=== PATIENT | female | born 1985 | race Caucasian/White ===

== ENCOUNTER 2022-12-25 09:16 | Outpatient (CLI) | payer MEDICAID ==
[2022-12-25 12:34] LABS: BASOPHILS # (AUTO) 0.1 10^3/uL (0.0-0.1); EOSINOPHILS # (AUTO) 0.3 10^3/uL (0.0-0.7); EOSINOPHILS % (AUTO) 4.7 %; HCT - HEMATOCRIT 40.8 % (37.0-47.0); HGB - HEMOGLOBIN 14.1 g/dL (12.0-16.0); LYMPHOCYTES # (AUTO) 2.1 10^3/uL (1.5-3.5); LYMPHOCYTES % (AUTO) 35.6 %; MEAN CORPUSCULAR HEMOGLOBIN 31.3 pg (27.0-31.0); MEAN CORPUSCULAR HGB CONC 34.6 g/dL (32.0-36.0); MEAN CORPUSCULAR VOLUME 90.5 fL (81.0-99.0); MEAN PLATELET VOLUME 11.2 fL (7.9-10.8); MONOCYTES # (AUTO) 0.6 10^3/uL (0.0-1.0); MONOCYTES % (AUTO) 10.6 %; NEUTROPHILS # (AUTO) 2.8 10^3/uL (1.5-6.6); NEUTROPHILS % (AUTO) 47.8 %; PLT - PLATELET COUNT 235 10^3/uL (130-450); RED BLOOD COUNT 4.51 10^6/uL (4.20-5.40); RED CELL DISTRIBUTION WIDTH 12.3 % (12.0-15.0); WHITE BLOOD COUNT 5.8 x10^3/uL (4.8-10.8)
[2022-12-25 12:52] LABS: ALBUMIN 4.5 g/dL (3.2-5.5); ALBUMIN/GLOBULIN RATIO 2.3 (1.0-2.2); ALKALINE PHOSPHATASE 30 IU/L (42-121); ALT ALANINE AMINOTRANSFERASE 33 IU/L (10-60); AST ASPARTATE AMINOTRANSFERASE 14 IU/L (10-42); BUN - BLOOD UREA NITROGEN 16 mg/dL (6-20); CALCIUM 9.4 mg/dL (8.5-10.3); CARBON DIOXIDE - CO2 25 mmol/L (21-32); CHLORIDE 107 mmol/L (101-111); CHOL/HDL RATIO 3.5 (<4.4); CHOLESTEROL 173 mg/dL; CREATININE 0.8 mg/dL (0.6-1.3); GFR - MDRD 80 (>89); GLUCOSE 101 mg/dL (74-104); HDL CHOLESTEROL 49 mg/dL; LDL CHOLESTEROL,CALCULATED 101 mg/dL; LDL/HDL RATIO 2.1 (<4.4); POTASSIUM 4.2 mmol/L (3.5-4.5); SODIUM 138 mmol/L (135-145); TOTAL PROTEIN 6.5 g/dL (6.4-8.9); TRIGLYCERIDES 116 mg/dL (48-352); VLDL CHOLESTEROL 23 mg/dL
[2022-12-25 13:09] LABS: THYROID STIMULATING HORMONE 1.77 uIU/mL (0.34-5.60)
== END 2022-12-25 09:17 | disposition home or self-care (01) ==
LOC: LAB.N 09:16
PROVIDERS: ATTEND Physician Assistant
DX: Z13.9 Encounter for screening, unspecified (principal)
CPT/HCPCS: 36415; 80053; 80061; 83721; 84443; 85025

== ENCOUNTER 2023-02-19 07:51 | Outpatient (CLI) | payer MEDICAID ==
--- NOTE | 2023-03-11 02:58 | Ultrasound Report ---
PROCEDURE: Abdomen Limited INDICATIONS: UMBILICAL HERNIA TECHNIQUE: Real-time focused scanning was performed of the abdomen, with image documentation. COMPARISONS: None. FINDINGS: There is a fat-containing hernia located 1.0 cm superior to the umbilicus with fascial defect measuri ng 2.4 x 2.1 cm. There is a fat-containing hernia located 6.0 cm superior to the umbilicus with fasci al defect measuring 2.5 x 1.9 cm. IMPRESSION: 2 fat-containing ventral hernias located 1.0 and 6.0 cm superior to the umbilicus measuring up to 2.4 cm and 2.5 cm, respectively. Reviewed by: Lesly Mijares MD on 03/11/2023 2:56 AM PST Approved by: Lesly Mijares MD on 03/11/2023 2:56 AM PST Station ID: [id number]
== END 2023-02-19 07:52 | disposition home or self-care (01) ==
LOC: DI 07:51
PROVIDERS: ATTEND Physician Assistant
DX: K43.9 Ventral hernia without obstruction or gangrene (principal)

== ENCOUNTER 2023-05-16 11:40 | Inpatient (IN) | payer MEDICAID ==
[~2023-05-16 11:40] MED LIST: ceFAZolin 2 GM VIAL ONE
[2023-05-16 12:01] LABS: HCG UR QUAL NEGATIVE
--- NOTE | 2023-05-16 12:07 | ANESTHESIA ---
Pre-Anesthesia VS, & Labs - Diagnosis ventral hernia - Procedure laparoscopic cholecystectomy Vital Signs: Temp Pulse Resp BP Pulse Ox O2 Flow Rate 37 C 76 16 112/76 96 05/16/23 12:00 05/16/23 12:00 05/16/23 12:00 05/16/23 12:00 05/16/23 12:00 Height: 5 ft 5 in Weight (kg): 111 kg Body Mass Index: 40.7 BMI Classification: Morbidly Obese - NPO >8 hours - Is Patient ?: No - Lab Results Lab results reviewed: Yes Home Medications and Allergies Home Medications: Ambulatory Orders Albuterol Sulf [Ventolin Hfa Inhaler] 1 - 2 puffs INH Q4HR PRN 05/09/23 EPINEPHrine [Epinephrine] 0.3 mg IJ ONCE PRN 05/09/23 Fluticasone [Flonase] 1 sprays NIKOLE DAILY 05/09/23 Pnv No.121/Iron/Folic Acid [ Multivitamin Tablet] 1 each PO DAILY 05/09/23 Albuterol Sulf [Ventolin Hfa Inhaler] 1 - 2 puffs INH Q4HR PRN 05/09/23 EPINEPHrine [Epinephrine] 0.3 mg IJ ONCE PRN 05/09/23 Fluticasone [Flonase] 1 sprays NIKOLE DAILY 05/09/23 Pnv No.121/Iron/Folic Acid [ Multivitamin Tablet] 1 each PO DAILY 05/09/23 Allergies/Adverse Reactions: Allergies Allergy/AdvReac Type Severity Reaction Status Date / Time bee pollen Allergy Anaphylaxis Verified 05/09/23 11:33 Penicillins Allergy Rash Verified 05/09/23 11:33 Anes History & Medical History - Anesthetic History Anesthesia Complications: reports: No previous complications Family history of Anesthesia Complications: Denies Family history of Malignant Hyperthermia: Denies - Medical History Cardiovascular: reports: None Pulmonary: reports: Asthma (albuterol once every few months per patient) Gastrointestinal: reports: None, Other (multiple ventral hernias, requiring laparoscopic approach) Urinary: reports: None Musculoskeletal: reports: None Endocrine/Autoimmune: reports: None Skin: reports: Eczema - Surgical History Gynecologic: reports: section Orthopedic: reports: ACL reconstruction Exam General: Alert, Oriented x3, Cooperative Dental: WNL Mouth Openin Fingerbreadth Neck Mobility: Normal Mallampati classification: II Thyromental Distance: 4-6 cm Respiratory: Lungs clear, Normal breath sounds Cardiovascular: Regular rate Mental/Cognitive Status: Alert/Oriented X3, Normal for patient Cognitive Status: Within normal limits Plan Anesthesia Type: General Consent for Procedure(s) Verified and Reviewed: Yes Code Status: Attempt Resuscitation ASA classification: 2-Mild systemic disease Is this case an emergency?: No
[2023-05-16] MEDS: LACTATED RINGERS 1,000 ML IV ONE (12:09)
[2023-05-16] MEDS ORDERED: ePHEDrine 50 MG/ML VIAL IVP PRN (12:29)
[2023-05-16] MEDS ORDERED: fentaNYL 100 MCG/2 ML VIAL IVP PRN (12:29)
[2023-05-16] MEDS ORDERED: MORPHINE 2 MG/ML CARPUJECT IVP PRN (12:29)
[2023-05-16] MEDS ORDERED: NALOXONE 0.4 MG/ML VIAL IVP PRN (12:29)
[2023-05-16] MEDS ORDERED: METOCLOPRAMIDE 10 MG/2 ML VIAL IVP PRN (12:29)
[2023-05-16] MEDS ORDERED: ONDANSETRON 4 MG/2 ML VIAL IVP PRN (12:29)
[2023-05-16] MEDS ORDERED: ATROPINE ABBOJECT 1 MG/10 ML SYRINGE IVP PRN (12:29)
[2023-05-16] MEDS ORDERED: fentaNYL 100 MCG/2 ML VIAL ONE (12:35)
[2023-05-16] MEDS ORDERED: MIDAZOLAM 2 MG/2 ML VIAL ONE (12:35)
[2023-05-16] MEDS ORDERED: LIDOCAINE-PF 2% 10 ML AMP SUBQ ONE (12:36)
[2023-05-16] MEDS ORDERED: ROCURONIUM 50 MG/5 ML VIAL ONE ×2 (12:36→14:30)
[2023-05-16] MEDS ORDERED: PROPOFOL 200 MG/20 ML VIAL IVP ONE (12:36)
[2023-05-16] MEDS ORDERED: LACTATED RINGERS 1,000 ML IV SCH (13:00)
[2023-05-16] MEDS ORDERED: BUPIVACAINE 0.25% PF 30 ML VIAL ONE (13:01)
--- NOTE | 2023-05-16 13:44 | HISTORY & PHYSICAL EXAMINATION ---
Chief Complaint - Chief Complaint Chief Complaint: painful hernia bulge mid abdomen History of Present Illness - History Obtained From Records Reviewed: yes History obtained from: pt Exam Limitations: none - History of Present Illness HPI Comment/Other: quickly growing ventral hernia bulge and discomfort History - Past Medical History Cardiovascular: reports: None Respiratory: reports: Asthma (albuterol once every few months per patient) Endocrine/Autoimmune: reports: None GI: reports: None, Other (multiple ventral hernias, requiring laparoscopic approach) : reports: None HEENT: reports: Chronic sinusitis Psych: reports: None Musculoskeletal: reports: None Derm: reports: Eczema MRSA Hx?: No - Past Surgical History Ortho: reports: ACL reconstruction /[employer]: reports: section Meds/Allgy - Home Medications Home Medications: Ambulatory Orders Medication Instructions Recorded Confirmed Albuterol Sulf [Ventolin Hfa 1 - 2 puffs INH Q4HR PRN 05/09/23 05/09/23 Inhaler] EPINEPHrine [Epinephrine] 0.3 mg IJ ONCE PRN 05/09/23 05/09/23 Fluticasone [Flonase] 1 sprays NIKOLE DAILY 05/09/23 05/16/23 Pnv No.121/Iron/Folic Acid 1 each PO DAILY 05/09/23 05/09/23 [ Multivitamin Tablet] - Allergies Allergies/Adverse Reactions: Allergies Allergy/AdvReac Type Severity Reaction Status Date / Time bee pollen Allergy Anaphylaxis Verified 05/09/23 11:33 Penicillins Allergy Rash Verified 05/09/23 11:33 Review of Systems - Other Findings Other Findings: 10 pt ros as above otherwise unremarkable Exam - Vital Signs Vital Signs: Vital Signs x48h Temp Pulse Resp BP Pulse Ox 05/16/23 12:00 37 C 76 16 112/76 96 - Physical Exam General Appearance: positive: No acute distress, Alert Eyes Bilateral: positive: PERRL, EOMI ENT: positive: No signs of dehydration Neck: positive: No JVD, Trachea midline Respiratory: positive: No respiratory distress Cardiovascular: positive: Regular rate & rhythm Abdomen: positive: Other (7 cm hernia bulge and very large diastasis) Neurologic/Psychiatric: positive: Oriented x3 Conclusion/Plan - Lab Results Lab results reviewed: Yes
[2023-05-16] MEDS ORDERED: DEXAMETHASONE 4 MG/ML VIAL ONE (14:03)
[2023-05-16] MEDS ORDERED: ONDANSETRON 4 MG/2 ML VIAL ONE (14:03)
[2023-05-16] MEDS ORDERED: ePHEDrine 50 MG/ML VIAL IVP ONE (14:18)
[2023-05-16] MEDS ORDERED: SODIUM CHLORIDE 0.9% 10 ML VIAL IVP ONE (14:18)
[2023-05-16] MEDS ORDERED: HYDROmorphone 1 MG/ML CARPUJECT ONE ×2 (14:24→16:16)
[2023-05-16] MEDS ORDERED: KETOROLAC 30 MG/ML VIAL ONE (15:33)
[2023-05-16] MEDS ORDERED: ACETAMINOPHEN 1,000 MG/100 ML 1,000 MG/100 ML BAG IV ONE (15:34)
[2023-05-16] MEDS ORDERED: SUGAMMADEX 200 MG/2 ML VIAL IVP ONE (15:36)
[2023-05-16] MEDS: LACTATED RINGERS 500 ML IV ONE ×2 (15:57→16:33)
[2023-05-16] MEDS ORDERED: SODIUM CHLORIDE FLUSH 0.9% 10 ML SYRINGE IVP PRN (15:58)
[2023-05-16] MEDS ORDERED: ACETAMINOPHEN 325 MG TABLET PO PRN (16:03)
[2023-05-16] MEDS ORDERED: ONDANSETRON ODT 4 MG TABLET TL PRN (16:03)
[2023-05-16] MEDS ORDERED: ALBUTEROL NEB 2.5 MG/3 ML INH PRN (16:09)
--- NOTE | 2023-05-16 16:12 | OPERATIVE REPORT ---
Operative Report - General Procedure Date: 05/16/23 Planned Procedure: lap ventral hernia repair Pre-Op Diagnosis: incarcerated ventral hernia Procedure Performed: lap repair incarcerated ventral hernia with mesh Post Op Diagnosis: same - Procedure Note Primary Surgeon: marco stewart Anesthesia Technique: General ET tube, Local Pathology: none Estimated Blood Loss (mL): 5 Drain/Tube Type: Other (none) Indications: large painful hernia Findings: 2 ventral hernias. incarcerated omentum. very large diastasis 8 x 10 in ventralight mesh Complications: none - Other Other Information/Narrative: The patient was prepped identified brought to the operating room and placed in supine position. Sequential compression devices were placed. General endotracheal anesthesia was induced. Tang catheter was placed. He was prepped and draped in a sterile fashion and given preoperative antibiotics. Local anesthetic was given to incision areas. A left upper quadrant 2 cm incision was made. Dissection proceeded down to the fascia. The fascia was lifted upwards and Veress needle placed. CO2 was insufflated to a pressure of 15. An 11 mm trocar was placed under vision. There was no evidence of injury from Veress needle or trocar placement. Under direct vision a 5 mm trocar was placed in the left lower quadrant right lower quadrant and right upper quadrant. Falciform ligament was taken down. Incarcerated omentum was eventually reduced. Adhesions of the omentum were taken down with hook cautery. Hemostasis was assured. She had 2 ventral hernia defects measuring approximately 3 and 4 cm. She had a very significant diastases with 10 cm hernia bulge when up. An 8 x 10 Ventralight mesh was placed intra-abdominal. It was secured to the abdomen with 6 interrupted 0 Ethibond sutures. Sutures were placed with use of a fascial stitch passer. Mesh lay in good position. Mesh was further secured with approximately 40 CapSure tacks. Fascia at the larger left upper quadrant trocar site was closed with a [id number] 0 Vicryl. Trocars were removed under direct vision and again hemostasis assured. Skin was closed with buried interrupted 4-0 Monocryl. Dressings were applied. Tolerated the procedure well was awakened and brought to recovery in good condition.
--- NOTE | 2023-05-16 16:16 | ANESTHESIA POST OP EVALUATION ---
Anesthesia Post Eval - Post Anesthesia Eval Vitals: Last Vital Signs Temp 36.6 C 05/16/23 16:10 Pulse 93 05/16/23 16:10 Resp 17 05/16/23 16:10 BP 100/87 H 05/16/23 16:10 Pulse Ox 100 05/16/23 16:10 O2 Flow Rate CV Function Including HR & BP: Stable Pain Control: Satisfactory Nausea & Vomiting: Negative Mental Status: Baseline Respiratory Status: Airway Patent Hydration Status: Satisfactory Anesthesia Complications: None
[2023-05-16] MEDS: HYDROmorphone 0.5 MG/0.5 ML SYRINGE IVP PRN (16:17)
[2023-05-16] MEDS ORDERED: HYDROmorphone 0.5 MG/0.5 ML SYRINGE ONE (16:27)
--- NOTE | 2023-05-16 16:38 | PHARMACY PROGRESS NOTE ---
- Best Possible Medication History Admit Date and Time: Processed by: Nursing Medications reviewed in ED?: No Medication History completed: Yes Patient Interview: Completed As the person ultimately responsible for medication therapy, providers are able to order a medication from an existing home medication list in [facility] via the "Reconcile Routine" prior to Confirmation of that medication by technical support 1 software engineer. Such practice is discouraged except when the physician, in their clinical judgment, deems that a medical need exists for a medication without regard to previous use.
[2023-05-16] MEDS: SODIUM CHLORIDE FLUSH 0.9% 10 ML SYRINGE IVP SCH (17:17)
[2023-05-16] MEDS: D5.45NS W/20 MEQ KCL 1,000 ML IV SCH (17:17)
[2023-05-16] MEDS: ONDANSETRON 4 MG/2 ML VIAL IVP PRN (17:18)
[2023-05-16] MEDS: KETOROLAC 15 MG/ML VIAL IVP SCH (18:25)
[2023-05-16] MEDS: HEPARIN 5,000 UNIT/ML VIAL SUBQ SCH (21:31)
[2023-05-16] MEDS: oxyCODONE 5 MG TABLET PO PRN (22:52)
--- NOTE | 2023-05-17 09:35 | ANESTHESIA POST OP EVALUATION ---
Anesthesia Post Eval - Post Anesthesia Eval Vitals: Last Vital Signs Temp 36.8 C 05/17/23 07:56 Pulse 63 05/17/23 07:56 Resp 18 05/17/23 07:56 BP 104/56 L 05/17/23 07:56 Pulse Ox 97 05/17/23 07:56 O2 Flow Rate CV Function Including HR & BP: Stable Pain Control: Satisfactory Nausea & Vomiting: Negative Mental Status: Baseline Respiratory Status: Airway Patent Hydration Status: Satisfactory Anesthesia Complications: None
[2023-05-17] MEDS: HEPARIN 5,000 UNIT/ML VIAL SUBQ SCH (12:14)
--- NOTE | 2023-05-17 13:25 | PROVIDER PROGRESS NOTE ---
Subjective - Subjective Subjective: doing well except for eyes irritated and watering this afternoon. was fine earlier. Objective - Vital Signs/Intake & Output Vital Signs: Vital Signs x48h Temp Pulse Pulse Resp BP BP Pulse Ox 05/17/23 11:31 36.5 C 74 18 111/61 97 05/17/23 07:56 36.8 C 63 63 18 104/56 L 104/56 L 97 05/17/23 06:00 36.8 C 85 16 104/60 95 Intake & Output: Intake & Output 05/14/23 05/15/23 05/16/23 05/17/23 23:59 23:59 23:59 23:59 Intake Total 820 2165 Output Total 1005 1450 Balance -185 715 - Objective General Appearance: positive: Alert Respiratory: positive: No respiratory distress Abdomen: positive: No distention Neurologic/Psychiatric: positive: Oriented x3 Assessment/Plan - Problem List (1) Ventral hernia Impression: large repair. typically very difficult to get out of bed for a couple days plan valdez out tomorrow. home when ambulating safely and comfortably artificial tears for eye irritation that started this afternoon
[2023-05-17] MEDS: CARBOXYMETHYLCELLULOSE OPHTH DROPS EACHEYE PRN (13:53)
--- NOTE | 2023-05-17 18:41 | Discharge Plan ---
Discharge Plan Problem Reviewed?: Yes Disposition: Home, Self Care Condition: Good Prescriptions: HYDROcod/ACETAM 5/325 [[place] 5/325] 1 each PO Q6H PRN #35 tablet PRN Reason: Pain Diet: Regular Shower Restrictions: No (ok to shower and get the dressings wet) Driving Restrictions: Yes (no driving while taking prescription pain pills) Health Concerns: recent very large hernia repair Plan of Treatment: laparoscopic ventral hernia repair Assessment: doing exceptionally well day after surgery Additional Instructions or Follow Up instructions: leave the dressings on for about a week. leave the steri strip tapes on until loose wear a binder for a week and then as desired. ok to remove the binder for showers use miralax, colace, milk of magnesia, etc as needed for constipation call with any concerns [phone] No Smoking: If you smoke, Please STOP! Call for help. Follow-up with: Charly Fofana MD [Provider Admit Priv/Credential] -
--- NOTE | 2023-05-17 18:47 | DISCHARGE SUMMARY ---
"Discharge Summary Admit Date: 05/16/23 Discharge Date: 05/17/23 Discharging Provider: marco stewart Code Status: Attempt Resuscitation Discharge Disposition: 01 Home, Self Care Discharge Facility Name: [facility] - DIAGNOSES Admission Diagnoses: very large incarcerated ventral hernia. 10 cm bulge. Discharge Diagnoses with Status of Each Condition: doing exceptionally well after a very large hernia repair - HPI History of Present Illness: large progressive and painful hernia bulge - CONSULTS | PROCEDURES Procedures: laparoscopic ventral hernia repair with mesh. ventralight mesh 8 x 10 inches - HOSPITAL COURSE Hospital Course: tolerating diet and ambulating safely prior to d/c - ALLERGIES Allergies/Adverse Reactions: Allergies Allergy/AdvReac Type Severity Reaction Status Date / Time bee pollen Allergy Anaphylaxis Verified 05/09/23 11:33 Penicillins Allergy Rash Verified 05/09/23 11:33 - MEDICATIONS Home Medications: Ambulatory Orders Medication Instructions Recorded Confirmed Albuterol Sulf [Ventolin Hfa 1 - 2 puffs INH Q4HR PRN 05/09/23 05/09/23 Inhaler] EPINEPHrine [Epinephrine] 0.3 mg IJ ONCE PRN 05/09/23 05/09/23 Fluticasone [Flonase] 1 sprays NIKOLE DAILY 05/09/23 05/16/23 Pnv No.121/Iron/Folic Acid 1 each PO DAILY 05/09/23 05/09/23 [ Multivitamin Tablet] HYDROcod/ACETAM 5/325 [[place] 5/325] 1 each PO Q6H PRN #35 tablet 05/17/23 - FOLLOW UP Follow Up: follow up surgery office in about a week call with any concerns [phone]"
[2023-05-17] MEDS: HYDROmorphone 0.5 MG/0.5 ML SYRINGE IVP PRN (20:25)
[2023-05-18 06:06] VITALS: O2SAT 97
[2023-05-18 08:02] VITALS: BP 129/78
== END 2023-05-18 09:49 | disposition home or self-care (01) | DRG 354 ==
LOC: SDS 11:40 → MS2 15:58 → SDS 18:17
PROVIDERS: ADMIT Surgery; ATTEND Surgery
PROC: 0WUF4JZ Supplement Abdominal Wall with Synthetic Substitute, Percutaneous Endoscopic Approach (ICD-10-PCS; principal; 2023-05-16 13:00)
DX: K43.6 Other and unspecified ventral hernia with obstruction, without gangrene (principal); Z68.41 Body mass index [BMI] 40.0-44.9, adult; J45.909 Unspecified asthma, uncomplicated; E66.01 Morbid (severe) obesity due to excess calories
CPT/HCPCS: 81025; A9270; C1781; J0131; J1170; J7120